=== PATIENT | female | born 1970 | race Caucasian/White ===

== ENCOUNTER 2024-12-09 14:27 | Observation (INO) ==
[2024-12-09 14:40] VITALS: BMI 35.6
[2024-12-09] MEDS: ZOFRAN INJ 4 MG VIAL IVP ONE (16:01)
[2024-12-09] MEDS: MORPHINE SULFATE INJ 4 MG IVP ONE (16:07)
[2024-12-09 16:09] LABS: BASOPHILS # (AUTO) 0.2 X10^3/uL (0.0-0.1); BASOPHILS % (AUTO) 1.9 % (0.2-1.0); EOSINOPHILS % (AUTO) 0.3 % (0.9-2.9); HEMATOCRIT 39.8 % (36.0-47.0); HEMOGLOBIN 13.7 g/dL (12.0-16.0); LYMPHOCYTES # (AUTO) 1.3 X10^3/uL (1.3-2.9); LYMPHOCYTES % (AUTO) 13.3 % (21.0-51.0); MEAN CORPUSCULAR HEMOGLOBIN 27.5 pg (27.0-34.0); MEAN CORPUSCULAR HGB CONC 34.3 g/dL (33.0-35.0); MEAN CORPUSCULAR VOLUME 80.3 fL (80.0-100.0); MEAN PLATELET VOLUME 8.2 fL (7.4-11.0); MONOCYTES # (AUTO) 0.2 x10^3/uL (0.3-0.8); NEUTROPHILS # (AUTO) 8.3 x10^3/uL (2.2-4.8); NEUTROPHILS % (AUTO) 82.5 % (42.0-75.0); PLATELET COUNT 293 X10^3/uL (150.0-450.0); RED BLOOD COUNT 4.96 X10^6/uL (3.5-5.4); RED CELL DISTRIBUTION WIDTH 14.4 % (11.6-16.5)
[2024-12-09 16:15] LABS: INR 1.01 (0.8-1.3)
[2024-12-09 16:16] LABS: BLOOD UREA NITROGEN 19 mg/dL (7-18); CARBON DIOXIDE 23.8 mmol/L (21-32); CHLORIDE 98 mmol/L (98-107); COR NA(FOR HYPERGLY) 135 mmol/L (136-145); CREATININE 0.92 mg/dL (0.55-1.02); GLUCOSE 168 mg/dL (65-99); POTASSIUM 4.7 mmol/L (3.5-5.1); SODIUM 133 mmol/L (136-145); eGFR NON BLACK RACES > 60 (>60)
--- NOTE | 2024-12-09 17:14 | MRI ---
EXAM:MRI LUMBAR SPINE WITHOUT CONTRASTHISTORY:LOW BACK PAIN, URINARY INCONT. LEFT LEG PAIN;COMPARISON:Lumbar spine radiograph November 18, 2024.TECHNIQUE:Multiplanar multisequence MRI was obtained through the lumbar spine without contrast.FINDINGS:There are 5 nonrib-bearing lumbar vertebral bodies. Alignment is within normal limits. Vertebral body heights are within normal limits. Discogenic degenerative marrow changes are present. The conus medullaris terminates normally. Visualized posterior abdomen and pelvis are within normal limits.L1-2: Mild disc bulge. Moderate facet joint osteoarthritis. No central canal or neural foraminal stenosis.L2-3: Mild facet joint osteoarthritis. No central canal or neural foraminal stenosis.L3-4: Mild facet joint osteoarthritis. No central canal or neural foraminal narrowing.L4-5: Mild facet joint osteoarthritis. Mild disc bulge. Mild neural foraminal narrowing bilaterally.L5-S1: Mild disc bulge. Severe facet joint osteoarthritis. Mild left neural foraminal narrowing.IMPRESSION:Multilevel lumbar spine degenerative changes noted with mild bilateral L4-5 and left L5-S1 neural foraminal narrowing.THIS IS AN ELECTRONICALLY VERIFIED FINAL REPORT12/09/2024 5:11 PM - Electronically signed by Pipe Guevara MD
--- NOTE | 2024-12-09 19:10 | VAS ---
EXAM: Duplex ultrasound of left lower extremity HISTORY: Left lower extremity swelling COMPARISON: None. TECHNIQUE: 16 images were provided for interpretation. FINDINGS: The left common femoral vein, superficial femoral vein (proximal, mid, distal), and popliteal vein de monstrate compression and augmentation. IMPRESSION: 1. There is no evidence of deep venous thrombosis in the visualized portions of the left lower extrem ity veins. THIS IS AN ELECTRONICALLY VERIFIED FINAL REPORT 12/09/2024 7:02 PM - Electronically signed by Ambrosio Fagan MD
[2024-12-09] MEDS: PERCOCET TAB 5/325 MG PO ONE (22:03)
--- NOTE | 2024-12-09 22:06 | CT ---
EXAM: CTA AORTA WITH RUNOFF HISTORY: 2 years now she has been having pain in her bottocks. She states that the pain got worse around three weeks ago. radiated down her left leg and that her left leg is also numb and heavy feeling.; COMPARISON: None. TECHNIQUE: CT angiography of the abdominal aorta with bilateral lower extremity runoff with intravenous contrast . Three-dimensional reconstructions and/or MIPS images were produced and reviewed. FINDINGS: CTA abdominal aorta: The lung bases are clear. The abdominal aorta tapers normally. The celiac and superior mesenteric arteries are patent. Bilateral renal arteries are patent. The inferior mesenter ic artery is patent. There is good flow in the bilateral common iliac arteries. There is good flow in the bilateral inter nal and external iliac arteries. There is good flow in the bilateral common femoral arteries. Minim al to no atherosclerotic plaque is visible. No liver lesion. Mildly distended gallbladder. Normal adrenal glands. The kidneys enhance normally . Unremarkable spleen and pancreas. Normal stomach. No bowel wall thickening. No sign of appendicitis. No pelvic free fluid. No free air. CTA bilateral lower extremity runoff: The right superficial femoral artery is patent. The right popl iteal artery is patent. There is good three-vessel flow in the right calf trifurcation to the foot. The left superficial femoral artery is patent. The left popliteal artery is patent. There is good f low in the left calf trifurcation to the foot. There is abnormal density within the musculature of the posterior left thigh consistent with the CT a ppearance of intramuscular hematoma affecting the biceps femoris muscle. There is mild stranding and induration in the adjacent subcutaneous fat. There is no vascular blush. No displaced fracture or periosteal reaction. IMPRESSION: CTA abdominal aorta: Nothing acute. CTA bilateral lower extremity runoff: No large artery occlusion or high-grade stenosis. Increased density and swelling in the musculature of the posterior left thigh consistent with the CT appearance of intramuscular hematoma involving biceps femoris. Hematoma does not well fit the given clinical history and correlation is requested. Inflammation or muscular mass would be differential considerations. If there is not prompt clinical improvement, MR imaging of the left thigh with intravenous contrast would be indicated for further evaluation and to exclude the possibility of a muscular mass. All CT scans at this facility use dose modulation, iterative reconstruction, and/or weight based dosi ng when appropriate to reduce radiation dose to as low as reasonably achievable. THIS IS AN ELECTRONICALLY VERIFIED FINAL REPORT 12/09/2024 10:02 PM - Electronically signed by Ian Mahmood MD
--- NOTE | 2024-12-09 23:31 | DR.EXTPAIN ---
HPI Time seen Time Seen by Provider: 12/09/24 15:43 PCP Primary Care Physician: Ar[facility] [employer] Complaint/Symptoms Chief Complaint Doctor Comments: 54 yo F, no pert med hx, c/o acute onset of pain and swelling to L posterior thigh. States she has had pain around her L buttocks for the past 2y, but today it became acutely worse. Denies dyspnea or chest pain. Denies known trauma. Denies other complaints. Chief Complaint:: Patient states that for 2 years now she has been having pain in her bottocks. She states that the pain got worse around three weeks ago and she went to Arlene Bennett for further evaluation. Donald thinks that it may be due to her back and has an MRI scheduled for the patient that has not been done yet. The patient states that the pain has radiated down her left leg and that her left leg is also numb and heavy feeling. She states that she was at work today and the pain got much worse, and she is having difficulty walking or sitting down due to the pain. Self Treatment fo Chief Complaint: She states that Arlene Bennett has her on a steroid and an anti inflammatroy medication. COVID-19 Coronavirus risk:travel/contact w/high risk person: No Has patient experienced Coronavirus symptoms: No Source History Provided: Patient Mode of arrival Mode of Arrival: Wheelchair Timing Onset of Chief Complaint: 12/09/24 PMH PMH Past Medical History: Yes Past Medical History: Anxiety Past Surgical History: Yes Surgical History: Appendectomy and Family History History of Family Medical Conditions: Yes Family Medical History: Diabetes Mellitus, Cancer and Hypertension Social History Does patient currently use any type of tobacco product: No Have you used tobacco products in the last 12 months: No Type of Tobacco Use: None Does any household member use tobacco: No Alcohol Use: None Do you use any recreational Drugs:: No Lives With: Family Lives Where: Home Travel Risk Coronavirus risk:travel/contact w/high risk person: No Has patient experienced Coronavirus symptoms: No Infectious screening In the last 2 months have you had wt loss of >10#?: NO Have you had fever, night sweats or hemotysis?: No Have you traveled outside the country in the last 6 months?: No Isolation: Standard ROS Review of Systems Musculoskeletal: Other (L posterior thigh pain) All Other Systems: Reviewed and Negative PE Vital Signs Vitals: Vital Signs Pulse Rate 79 Pulse Rate 81 Pulse Rate 86 Pulse Rate 76 Pulse Rate 85 Pulse Rate 86 Pulse Rate 82 Pulse Rate 82 Pulse Rate 83 Pulse Rate 84 Pulse Rate 84 Pulse Rate 86 Pulse Rate 89 Pulse Rate 88 Pulse Rate 97 Pulse Rate 101 Pulse Rate 104 Pulse Rate 100 Pulse Rate 101 Pulse Rate 92 Pulse Rate 90 Pulse Rate 92 Pulse Rate 100 Pulse Rate 92 Pulse Rate 98 Pulse Rate 93 Pulse Rate 100 Pulse Rate 98 Pulse Rate 99 Respiratory Rate 20 Respiratory Rate 22 Respiratory Rate 22 Blood Pressure 115/60 Blood Pressure 115/60 Blood Pressure 126/87 Blood Pressure 117/73 Blood Pressure 111/60 Blood Pressure 110/66 Blood Pressure 122/70 Blood Pressure 127/68 Blood Pressure 128/98 Blood Pressure 145/77 Blood Pressure 130/74 Blood Pressure 134/84 Blood Pressure 126/68 Blood Pressure 122/71 Blood Pressure 134/92 Blood Pressure 131/96 Blood Pressure 122/89 O2 Sat by Pulse Oximetry 96 O2 Sat by Pulse Oximetry 96 O2 Sat by Pulse Oximetry 96 O2 Sat by Pulse Oximetry 95 O2 Sat by Pulse Oximetry 94 O2 Sat by Pulse Oximetry 95 O2 Sat by Pulse Oximetry 95 O2 Sat by Pulse Oximetry 94 O2 Sat by Pulse Oximetry 95 O2 Sat by Pulse Oximetry 96 O2 Sat by Pulse Oximetry 96 O2 Sat by Pulse Oximetry 97 O2 Sat by Pulse Oximetry 94 O2 Sat by Pulse Oximetry 93 O2 Sat by Pulse Oximetry 97 O2 Sat by Pulse Oximetry 96 O2 Sat by Pulse Oximetry 97 O2 Sat by Pulse Oximetry 95 O2 Sat by Pulse Oximetry 95 O2 Sat by Pulse Oximetry 94 O2 Sat by Pulse Oximetry 93 O2 Sat by Pulse Oximetry 95 O2 Sat by Pulse Oximetry 95 O2 Sat by Pulse Oximetry 96 O2 Sat by Pulse Oximetry 94 O2 Sat by Pulse Oximetry 96 O2 Sat by Pulse Oximetry 97 O2 Sat by Pulse Oximetry 97 O2 Sat by Pulse Oximetry 98 O2 Sat by Pulse Oximetry 97 General Limitations: No Limitations General Appearance: Alert and In No Apparent Distress Head Head Exam: Normal Inspection Eyes Eye exam: Normal Appearance ENT ENT Exam: Normal Exam Neck Neck Exam: Normal Inspection Chest Chest Inspection: Normal Inspection Respiratory Respiratory Exam: Normal Lung Sounds Bilat Cardiovascular Cardiovascular Exam: Regular Rate and Normal Rhythm Lower Extremities Upper Leg Exam: Other (L posterior thigh: large indurated area, firm to the touch, encompassing ~2/3 of L posterior thigh. Skin intact. ) Back Back Exam: Normal Inspection Neurological Neurological Exam: Alert, Oriented X3 and CN II-XII Intact Psychiatric Psychiatric Exam: Normal Affect and Normal Mood Skin Skin Exam: Warm, Dry, Intact and Normal Color ROR Labs Reviewed 12/09/24 15:59 12/09/24 15:59 Laboratory: WBC 10.0 X10^3/uL (3.6-10.0) 12/09/24 15:59 RBC 4.96 X10^6/uL (3.5-5.4) 12/09/24 15:59 Hgb 13.7 g/dL (12.0-16.0) 12/09/24 15:59 Hct 39.8 % (36.0-47.0) 12/09/24 15:59 MCV 80.3 fL (80.0-100.0) 12/09/24 15:59 MCH 27.5 pg (27.0-34.0) 12/09/24 15:59 MCHC 34.3 g/dL (33.0-35.0) 12/09/24 15:59 RDW 14.4 % (11.6-16.5) 12/09/24 15:59 Plt Count 293 X10^3/uL (150.0-450.0) 12/09/24 15:59 MPV 8.2 fL (7.4-11.0) 12/09/24 15:59 Neut % (Auto) 82.5 % (42.0-75.0) H 12/09/24 15:59 Lymph % (Auto) 13.3 % (21.0-51.0) L 12/09/24 15:59 [place] % (Auto) 2.0 % (0.0-13.0) 12/09/24 15:59 Eos % (Auto) 0.3 % (0.9-2.9) L 12/09/24 15:59 Baso % (Auto) 1.9 % (0.2-1.0) H 12/09/24 15:59 Neut # (Auto) 8.3 x10^3/uL (2.2-4.8) H 12/09/24 15:59 Lymph # (Auto) 1.3 X10^3/uL (1.3-2.9) 12/09/24 15:59 [place] # (Auto) 0.2 x10^3/uL (0.3-0.8) L 12/09/24 15:59 Eos # (Auto) 0.0 x10^3/uL (0.0-0.2) 12/09/24 15:59 Baso # (Auto) 0.2 X10^3/uL (0.0-0.1) H 12/09/24 15:59 Absolute Nucleated RBC 0.0 /100WBC 12/09/24 15:59 PT 13.1 SECONDS (11.8-14.3) 12/09/24 15:59 INR Target Range - 12/09/24 15:59 INR 1.01 (0.8-1.3) 12/09/24 15:59 APTT 33.2 SECONDS (22.9-36.5) 12/09/24 15:59 PTT Comment - 12/09/24 15:59 Sodium 133 mmol/L (136-145) L 12/09/24 15:59 Corrected Sodium 135 mmol/L (136-145) L 12/09/24 15:59 Potassium 4.7 mmol/L (3.5-5.1) 12/09/24 15:59 Chloride 98 mmol/L (98-107) 12/09/24 15:59 Carbon Dioxide 23.8 mmol/L (21-32) 12/09/24 15:59 BUN 19 mg/dL (7-18) H 12/09/24 15:59 Creatinine 0.92 mg/dL (0.55-1.02) 12/09/24 15:59 Est GFR (MDRD) Af Amer > 60 (>60) 12/09/24 15:59 Est GFR (MDRD) Non-Af > 60 (>60) 12/09/24 15:59 Glucose 168 mg/dL (65-99) H 12/09/24 15:59 Calcium 9.0 mg/dL (8.5-10.1) 12/09/24 15:59 Opioid Opioid Risk Tool Age (Gato box if 16-45): No History of Preadolescent Sexual Abuse: No Total: 0 Total Score Risk Category: Low Risk Copyright: Andrew MCKNIGHT predicting aberrant behaviors Discharge Plan Diagnosis Discharge Problem: Hematoma of left thigh, Intractable pain, Inability to walk Discharge Plan Patient Disposition: 01 HOME, SELF-CARE Condition: Stable Orders to Discharge Patient Discharge Orders: Transfer (Routine); Ordered 12/09/24 Ordered By: Jose Stevens
[2024-12-10] MEDS: MORPHINE SULFATE INJ 4 MG IVP SCH (00:32)
[2024-12-10] MEDS: NS 1,000 ML IV 1,000 ML IV SCH (01:01)
[2024-12-10 05:43] LABS: BASOPHILS # (AUTO) 0.1 X10^3/uL (0.0-0.1); BASOPHILS % (AUTO) 0.6 % (0.2-1.0); EOSINOPHILS # (AUTO) 0.2 x10^3/uL (0.0-0.2); EOSINOPHILS % (AUTO) 1.6 % (0.9-2.9); HEMOGLOBIN 12.2 g/dL (12.0-16.0); LYMPHOCYTES # (AUTO) 3.3 X10^3/uL (1.3-2.9); LYMPHOCYTES % (AUTO) 30.6 % (21.0-51.0); MEAN CORPUSCULAR HEMOGLOBIN 28.1 pg (27.0-34.0); MEAN CORPUSCULAR HGB CONC 34.9 g/dL (33.0-35.0); MEAN CORPUSCULAR VOLUME 80.4 fL (80.0-100.0); MEAN PLATELET VOLUME 7.8 fL (7.4-11.0); MONOCYTES # (AUTO) 0.7 x10^3/uL (0.3-0.8); MONOCYTES % (AUTO) 6.6 % (0.0-13.0); NEUTROPHILS # (AUTO) 6.6 x10^3/uL (2.2-4.8); NEUTROPHILS % (AUTO) 60.6 % (42.0-75.0); PLATELET COUNT 244 X10^3/uL (150.0-450.0); RED BLOOD COUNT 4.35 X10^6/uL (3.5-5.4); RED CELL DISTRIBUTION WIDTH 14.9 % (11.6-16.5); WHITE BLOOD COUNT 10.8 X10^3/uL (3.6-10.0)
[2024-12-10 05:50] LABS: INR 1.07 (0.8-1.3)
[2024-12-10 05:59] LABS: ALANINE AMINOTRANSFERASE 30 Units/L (12-78); ALBUMIN 2.9 g/dL (3.4-5.0); ALKALINE PHOSPHATASE 66 Units/L (46-116); ASPARTATE AMINO TRANSFERASE 20 Units/L (15-37); BLOOD UREA NITROGEN 18 mg/dL (7-18); CALCIUM 8.6 mg/dL (8.5-10.1); CARBON DIOXIDE 27.7 mmol/L (21-32); CHLORIDE 102 mmol/L (98-107); COR CA(FOR HYPOALB) 9.5 mg/dL (8.5-10.1); COR NA(FOR HYPERGLY) 140 mmol/L (136-145); CREATININE 0.88 mg/dL (0.55-1.02); GLUCOSE 127 mg/dL (65-99); MAGNESIUM 2.1 mg/dL (2.0-2.9); POTASSIUM 3.9 mmol/L (3.5-5.1); SODIUM 139 mmol/L (136-145); TOTAL PROTEIN 6.3 g/dL (6.4-8.2); eGFR NON BLACK RACES > 60 (>60)
[2024-12-10] MEDS: MORPHINE SULFATE INJ 4 MG IVP PRN (06:10)
[2024-12-10] MEDS: ZOFRAN INJ 4 MG VIAL IVP PRN (10:28)
[2024-12-10] MEDS ORDERED: MULTIHANCE INJ VIAL ONE (11:58)
--- NOTE | 2024-12-10 14:45 | MRI ---
EXAM:EXT LOWER NON-JOINT W&W/O CONHISTORY:LEFT THIGH PAIN AND SWELLING CONTRAST-MULTIHANCE 20CC INJECTED INTO RIGHT FOREARM ;COMPARISON:CT dated 12/09/2024TECHNIQUE:Multi planar series were obtained without and with IV contrast.FINDINGS:MUSCLES, TENDONS, AND SOFT TISSUES:Within the posterior left thigh compartment predominantly involving the abductor elicia muscle, there is an 8 x 6 x 10 cm irregular heterogeneous fluid collection with internal septations. There is mild peripheral enhancement with extensive surrounding posterior thigh compartment muscle edema and enhancement. There is mild mass effect and displacement of the left sciatic nerve. No definite enhancing solid component.Chronic moderate left common hamstring tendinopathy with partial tear at the insertion on the ischial tuberosity.BONE/JOINTS:Normal bone marrow signal without evidence of involvement. Mild left hip osteoarthritis is partially visualized with small effusion.IMPRESSION:Irregular heterogeneous left adductor elicia intramuscular fluid collection measures approximately 8 x 6 x 10 cm with surrounding edema and enhancement. Given findings on comparison CT, this is most compatible with an intramuscular hematoma. Abscess considered unlikely. No suspicious enhancing solid component.THIS IS AN ELECTRONICALLY VERIFIED FINAL REPORT12/10/2024 2:42 PM - Electronically signed by Pipe Sales MD
[2024-12-11] MEDS: ATIVAN TAB 1 MG PO PRN (04:10)
[2024-12-11 06:56] LABS: BASOPHILS # (AUTO) 0.1 X10^3/uL (0.0-0.1); BASOPHILS % (AUTO) 0.9 % (0.2-1.0); EOSINOPHILS # (AUTO) 0.3 x10^3/uL (0.0-0.2); EOSINOPHILS % (AUTO) 4.2 % (0.9-2.9); HEMATOCRIT 31.8 % (36.0-47.0); LYMPHOCYTES # (AUTO) 2.6 X10^3/uL (1.3-2.9); MEAN CORPUSCULAR HEMOGLOBIN 28.1 pg (27.0-34.0); MEAN CORPUSCULAR HGB CONC 34.8 g/dL (33.0-35.0); MEAN CORPUSCULAR VOLUME 80.9 fL (80.0-100.0); MEAN PLATELET VOLUME 8.1 fL (7.4-11.0); MONOCYTES # (AUTO) 0.5 x10^3/uL (0.3-0.8); MONOCYTES % (AUTO) 5.8 % (0.0-13.0); NEUTROPHILS # (AUTO) 4.4 x10^3/uL (2.2-4.8); NEUTROPHILS % (AUTO) 56.1 % (42.0-75.0); PLATELET COUNT 208 X10^3/uL (150.0-450.0); RED BLOOD COUNT 3.93 X10^6/uL (3.5-5.4); RED CELL DISTRIBUTION WIDTH 14.7 % (11.6-16.5); WHITE BLOOD COUNT 7.8 X10^3/uL (3.6-10.0)
[2024-12-11 07:22] LABS: ALANINE AMINOTRANSFERASE 27 Units/L (12-78); ALBUMIN 2.7 g/dL (3.4-5.0); ALKALINE PHOSPHATASE 61 Units/L (46-116); ASPARTATE AMINO TRANSFERASE 16 Units/L (15-37); BLOOD UREA NITROGEN 13 mg/dL (7-18); CARBON DIOXIDE 28.6 mmol/L (21-32); CHLORIDE 105 mmol/L (98-107); COR NA(FOR HYPERGLY) 140 mmol/L (136-145); CREATININE 0.64 mg/dL (0.55-1.02); GLUCOSE 114 mg/dL (65-99); POTASSIUM 3.7 mmol/L (3.5-5.1); SODIUM 140 mmol/L (136-145); eGFR NON BLACK RACES > 60 (>60)
[2024-12-11] MEDS: CONSULT PHARMACY - POTASSIUM & MAGNESIUM XX SCH (07:48)
[2024-12-11 09:05] VITALS: BP 109/58; PULSE 75; RESP 19; TEMP 97.8; O2SAT 94
[2024-12-11] MEDS: K-DUR TAB 20 MEQ PO SCH (10:12)
--- NOTE | 2024-12-13 08:28 | DR.H&P ---
H&P History & Physical for Day of: H&P Date: 12/10/24 Chief Complaint Chief Complaint: Cannot walk History of Present Illness History of Present Illness: Patient presented to the ER with her after referral by her PCP. They were concerned about her inability to walk with swelling of her left hamstring. Was at work when she suddenly lost ability to put any weight on the left leg. Had already been doing an outpatient workup due to low back pain with radiation into the legs. ER workup concerning for mass hidden within a hematoma in the left distal hamstring. Patient was still unable to bear weight with the left leg at the time of my exam. ROS: 12 point ROS negative except as noted in the HPI. PE: Well-developed, well-nourished, obese female in no acute distress. Hearing intact conversation, EOMI, trachea midline, head NCAT. Heart regular rate and rhythm. Lungs are clear with unlabored respirations. Belly is soft and nontender with bowel sounds present. She is able to move all extremities with some limitation of the left leg. There is induration throughout the hamstring with visible bruising streaking proximally to distally with the largest collection just above the popliteal fossa. Mood and affect are appropriate. Past Medical History Past Medical History: Anxiety Past Surgical History Surgical History: Appendectomy and Family History Family Medical History: Diabetes Mellitus, Cancer and OR Social History Does patient currently use any type of tobacco product: No Have you used tobacco products in the last 12 months: No Type of Tobacco Use: None Does any household member use tobacco: No Alcohol Use: None Drug Use: None Medications Home Medications: Home Medications Medication Instructions Recorded Confirmed Type diclofenac sodium 100 mg 100 mg PO QDAY low back pain 12/09/24 12/10/24 History tablet,extended release 24 hr lorazepam 1 mg tablet 1 mg PO TID anxiety 12/09/24 12/10/24 History sertraline 50 mg tablet 50 mg PO QDAY anxiety 12/09/24 12/10/24 History Allergies Allergies Allergy/AdvReac Type Severity Reaction Status Date / Time No Known Allergies Allergy Verified 12/10/24 00:23 Labs 12/11/24 05:59 12/11/24 05:59 Labs: Laboratory WBC 7.8 X10^3/uL (3.6-10.0) 12/11/24 05:59 RBC 3.93 X10^6/uL (3.5-5.4) 12/11/24 05:59 Hgb 11.0 g/dL (12.0-16.0) L 12/11/24 05:59 Hct 31.8 % (36.0-47.0) L 12/11/24 05:59 MCV 80.9 fL (80.0-100.0) 12/11/24 05:59 MCH 28.1 pg (27.0-34.0) 12/11/24 05:59 MCHC 34.8 g/dL (33.0-35.0) 12/11/24 05:59 RDW 14.7 % (11.6-16.5) 12/11/24 05:59 Plt Count 208 X10^3/uL (150.0-450.0) 12/11/24 05:59 MPV 8.1 fL (7.4-11.0) 12/11/24 05:59 Neut % (Auto) 56.1 % (42.0-75.0) 12/11/24 05:59 Lymph % (Auto) 33.0 % (21.0-51.0) 12/11/24 05:59 [place] % (Auto) 5.8 % (0.0-13.0) 12/11/24 05:59 Eos % (Auto) 4.2 % (0.9-2.9) H 12/11/24 05:59 Baso % (Auto) 0.9 % (0.2-1.0) 12/11/24 05:59 Neut # (Auto) 4.4 x10^3/uL (2.2-4.8) 12/11/24 05:59 Lymph # (Auto) 2.6 X10^3/uL (1.3-2.9) 12/11/24 05:59 [place] # (Auto) 0.5 x10^3/uL (0.3-0.8) 12/11/24 05:59 Eos # (Auto) 0.3 x10^3/uL (0.0-0.2) H 12/11/24 05:59 Baso # (Auto) 0.1 X10^3/uL (0.0-0.1) 12/11/24 05:59 Absolute Nucleated RBC 0.0 /100WBC 12/11/24 05:59 PT 13.7 SECONDS (11.8-14.3) 12/10/24 05:29 INR Target Range - 12/10/24 05:29 INR 1.07 (0.8-1.3) 12/10/24 05:29 APTT 32.4 SECONDS (22.9-36.5) 12/10/24 05:29 PTT Comment - 12/10/24 05:29 Sodium 140 mmol/L (136-145) 12/11/24 05:59 Corrected Sodium 140 mmol/L (136-145) 12/11/24 05:59 Potassium 3.7 mmol/L (3.5-5.1) 12/11/24 05:59 Chloride 105 mmol/L (98-107) 12/11/24 05:59 Carbon Dioxide 28.6 mmol/L (21-32) 12/11/24 05:59 BUN 13 mg/dL (7-18) 12/11/24 05:59 Creatinine 0.64 mg/dL (0.55-1.02) 12/11/24 05:59 Est GFR (MDRD) Af Amer > 60 (>60) 12/11/24 05:59 Est GFR (MDRD) Non-Af > 60 (>60) 12/11/24 05:59 Glucose 114 mg/dL (65-99) H 12/11/24 05:59 Calcium 8.0 mg/dL (8.5-10.1) L 12/11/24 05:59 Corrected Calcium 9.0 mg/dL (8.5-10.1) 12/11/24 05:59 Magnesium 2.1 mg/dL (2.0-2.9) 12/10/24 05:29 Total Bilirubin 0.40 mg/dL (0.2-1.0) 12/11/24 05:59 AST 16 Units/L (15-37) 12/11/24 05:59 ALT 27 Units/L (12-78) 12/11/24 05:59 Alkaline Phosphatase 61 Units/L (46-116) 12/11/24 05:59 Total Protein 6.0 g/dL (6.4-8.2) L 12/11/24 05:59 Albumin 2.7 g/dL (3.4-5.0) L 12/11/24 05:59 Globulin 3.3 g/dL (2.5-4.5) 12/11/24 05:59 Albumin/Globulin Ratio 0.8 Ratio (1.1-2.1) L 12/11/24 05:59 Assessment/Plan (1) Hematoma of left thigh: Qualifiers: Encounter type: initial encounter Qualified Code(s): S70.12XA - Contusion of left thigh, initial encounter Narrative Support Text: There is some concern for cancer but I strongly suspect that this is a left hamstring tear. We would get an MRI to assess for any musculotendinous damage. Hopefully will discharge later today but may be tomorrow with crutches. Possibly will need surgical evacuation of the hematoma if neurovascular status changes in the LLE. Status: Acute (2) Intractable pain: Narrative Support Text: Improving. Continue current. Status: Acute (3) Inability to walk: Narrative Support Text: See above. Status: Acute
== END 2024-12-11 10:50 | disposition home or self-care (01) ==
LOC: ER 14:27 → U 14:27 → MED/SURG 12-10 12:52
PROVIDERS: ADMIT Family Medicine; ATTEND Family Medicine
DX: M54.2 Cervicalgia; S70.12XA Contusion of left thigh, initial encounter; Z59.41 Food insecurity; X58.XXXA Exposure to other specified factors, initial encounter; S76.822A Laceration of other specified muscles, fascia and tendons at thigh level, left thigh, initial encounter; F41.8 Other specified anxiety disorders; M51.360 Other intervertebral disc degeneration, lumbar region with discogenic back pain only; E87.1 Hypo-osmolality and hyponatremia; R60.0 Localized edema; R26.2 Difficulty in walking, not elsewhere classified; M79.652 Pain in left thigh; E11.65 Type 2 diabetes mellitus with hyperglycemia